=== PATIENT | male | born 1965 | race Caucasian/White ===

== ENCOUNTER 2018-12-13 09:28 | Emergency (ER) | payer SELFPAY ==
[2018-12-13] MEDS ORDERED: NA CHLORIDE 0.9% 500 ML ONE (09:51)
[2018-12-13 10:05] LABS: Absolute Lymphocytes (CBC) 0.8 K/uL (0.7-4.9); Basophils % 0.3 % (0-1.3); Lymphocytes % 10.5 % (15.3-44.8); MPV 8.7 fL (7.6-11.3); RBC Red Blood Cell Count 4.84 M/uL (4.33-5.43)
[2018-12-13 10:43] LABS: BUN Blood Urea Nitrogen 14 mg/dL (7-18); Bicarbonate 29 mmol/L (21-32); Glucose Level 123 mg/dL (74-106); Sodium Level 142 mmol/L (136-145); Troponin (Emerg Dept Use Only) < 0.02 ng/mL (0.0-0.045)
--- NOTE | 2018-12-13 10:43 | RAD REPORT ---
EXAM DESCRIPTION: CT - Head Brain Wo Cont - 12/13/2018 10:35 am CLINICAL HISTORY: SYNCOPE Headache, drowsiness COMPARISON: No comparisons TECHNIQUE: All CT scans are performed using dose optimization technique as appropriate and may inclu de automated exposure control or mA/KV adjustment according to patient size. FINDINGS: No intracranial hemorrhage, hydrocephalus or extra-axial fluid collection.No areas of brai n edema or evidence of midline shift. The paranasal sinuses and mastoids are clear. The calvarium is intact. IMPRESSION: No acute intracranial abnormality.
[2018-12-13 10:47] LABS: Urine Blood NEGATIVE (NEG); Urine Glucose NEGATIVE (NEG); Urine Protein NEGATIVE (NEG); Urine Specific Gravity 1.015 (1.005-1.030); Urine pH 8.5 (5.0-7.0)
--- NOTE | 2018-12-13 12:43 | ER ---
Nurse's Notes [facility] Name: José Walker Age: 53 yrs Sex: Male : 1965 Arrival Date: 12/13/2018 Time: 09:29 Bed 15 Private MD: Diagnosis: Chest pain, unspecified Presentation: 12/13 09:31 Presenting complaint: Patient states: Sudden onset of left side chest pain, jl7 non-radiating, then instantly felt like "I was floating and the next thing I was in the break room." EMS reports positive LOC, did not hit his head, co-workers moved him to the break room. Reported WOOTEN and nausea initially on scene, all symptoms have resolved at this time. Transition of care: patient was not received from another setting of care. Onset of symptoms was December 13, 2018 at 08:30. Risk Assessment: Do you want to hurt yourself or someone else? Patient reports no desire to harm self or others. Initial Sepsis Screen: Does the patient meet any 2 criteria? No. Patient's initial sepsis screen is negative. Does the patient have a suspected source of infection? No. Patient's initial sepsis screen is negative. Care prior to arrival: IV initiated. 20 GA, in the left antecubital area. 09:31 Method Of Arrival: EMS: [facility] jl7 09:31 Acuity: REJI 3 jl7 Triage Assessment: 09:34 General: Appears in no apparent distress. uncomfortable, Behavior is calm, cooperative, jl7 appropriate for age, Reports "I've been under a lot of stress so maybe that's what the problem is.". Pain: Denies pain. EENT: No signs and/or symptoms were reported regarding the EENT system. Neuro: Level of Consciousness is awake, alert, obeys commands, Oriented to person, place, time, situation, Wet Wash Assembler are equal bilaterally Moves all extremities. Full function Gait is steady, Speech is normal, Facial symmetry appears normal. Cardiovascular: Heart tones S1 S2 present Patient's skin is warm and dry. Respiratory: Airway is patent Respiratory effort is even, unlabored, Respiratory pattern is regular, symmetrical, Breath sounds are clear bilaterally. GI: No signs and/or symptoms were reported involving the gastrointestinal system. : No signs and/or symptoms were reported regarding the genitourinary system. Derm: Skin is pink, warm \\T\\ dry. Musculoskeletal: No signs and/or symptoms reported regarding the musculoskeletal system. Historical: - Allergies: 09:34 No Known Allergies; jl7 - Home Meds: 09:34 None [Active]; jl7 - PMHx: 09:34 None; jl7 - PSHx: 09:34 None; jl7 - Immunization history:: Adult Immunizations up to date, Last tetanus immunization: up to date. - Social history:: Smoking status: Patient/guardian denies using tobacco. - Ebola Screening: : No symptoms or risks identified at this time. - Family history:: not pertinent. - Hospitalizations: : No recent hospitalization is reported. Screenin:40 Abuse screen: Denies threats or abuse. Denies injuries from another. Nutritional jl7 screening: No deficits noted. Tuberculosis screening: No symptoms or risk factors identified. Fall Risk IV access (20 points). Total Perez Fall Scale indicates No Risk (0-24 pts). Assessment: 09:30 General: See triage assessment. 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 09:40 Reassessment: Dr. Christensen at bedside. 7 11:00 Reassessment: Patient appears in no apparent distress at this time. No changes from [facility] previously documented assessment. Patient and/or family updated on plan of care and expected duration. Pain level reassessed. Patient is alert, oriented x 3, equal unlabored respirations, skin warm/dry/pink. 12:00 Reassessment: Patient appears in no apparent distress at this time. No changes from [facility] previously documented assessment. Patient and/or family updated on plan of care and expected duration. Pain level reassessed. Patient is alert, oriented x 3, equal unlabored respirations, skin warm/dry/pink. 12:00 Pain: Denies pain. Pain does not radiate. Pain began none. jl7 Vital Signs: 09:37 BP 129 / 81; Pulse 69; Resp 16 S; Temp 98.7(O); Pulse Ox 98% on R/A; Pain 0/10; jl7 12:05 BP 117 / 73; Pulse 84; Resp 15; Temp 98.3(O); Pulse Ox 100% on R/A; mh5 13:00 BP 120 / 79; Pulse 72; Resp 16 S; Pulse Ox 100% on R/A; jl7 ED Course: 09:29 Patient arrived in ED. am2 09:31 Misty Darnell RN is Primary Nurse. jl7 09:34 Triage completed. jl7 09:35 Jose Angel Christensen MD is Attending Physician. rn 09:37 Arm band placed on right wrist. jl7 09:40 Patient has correct armband on for positive identification. insurance job titles on. Pulse jl7 ox on. NIBP on. 09:40 Maintain EMS IV. Dressing intact. Good blood return noted. Site clean \\T\\ dry. Gauge \\T\\ jl 7 site: 20 left AC. Patient maintains SpO2 saturation greater than 95% on room air. 10:00 Initial lab(s) drawn, by ED staff, sent to lab. jl7 10:24 EKG done, by hitch technician. reviewed by Jose Angel Christensen MD. at1 10:35 CT Head Brain wo Cont In Process Unspecified. EDMS 11:00 IV discontinued, intact, bleeding controlled, Pressure dressing applied, Pt's IV jl7 infiltrated. 12:00 Repeat lab(s) drawn. by ED staff, sent to lab. jl7 13:00 No provider procedures requiring assistance completed. jl7 Administered Medications: 12:33 Not Given (Patient Refused): NS 0.9% 500 ml IV at bolus once jl7 Outcome: 12:42 Discharge ordered by . rn 13:00 Discharged to home ambulatory. jl7 13:00 Condition: stable 13:00 Discharge instructions given to patient, Instructed on discharge instructions, follow up and referral plans. Demonstrated understanding of instructions, follow-up care. 13:35 Patient left the ED. jl7 Signatures: Dispatcher [employer] EDMS Jose Angel Christensen MD MD rn Gonzales, Amanda, mattress maker EKG Tat1 Emilia Ring 5 Misty Darnell, RN RN jl7 Tete Garcia am2 Corrections: (The following items were deleted from the chart) 09:45 09:40 Maintain EMS IV. Dressing intact. Good blood return noted. Site clean \\T\\ dry. jl7 Gauge \\T\\ site: 20 right AC. jl7
--- NOTE | 2018-12-13 12:43 | EDPHYS ---
Physician Documentation [facility] Name: José Walker Age: 53 yrs Sex: Male : 1965 Arrival Date: 12/13/2018 Time: 09:29 Bed 15 Private MD: ED Physician Jose Angel Christensen HPI: 12/13 10:01 This 53 yrs old Male presents to ER via EMS with complaints of Chest Pain. rn 10:01 The patient or guardian reports chest pain that is located primarily in the anterior rn chest wall, left. 10:02 The patient has experienced syncope. Onset: The symptoms/episode began/occurred just rn prior to arrival. Duration: This was a single episode. Associated injury: The patient did not suffer any apparent associated injury. Current symptoms: Currently, the patient is not experiencing any symptoms. The patient has not experienced similar symptoms in the past. 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 Reports just seen by cardiology yesterday, has negative treadmill stress test, and ECHO, had been sent there for abnormal ECG by pcp. Cardiology told him everything looked ok. . Historical: - Allergies: 09:34 No Known Allergies; jl7 - Home Meds: 09:34 None [Active]; jl7 - PMHx: 09:34 None; jl7 - PSHx: 09:34 None; jl7 - Immunization history:: Adult Immunizations up to date, Last tetanus immunization: up to date. - Social history:: Smoking status: Patient/guardian denies using tobacco. - Ebola Screening: : No symptoms or risks identified at this time. - Family history:: not pertinent. - Hospitalizations: : No recent hospitalization is reported. ROS: 10:02 Constitutional: Negative for fever, chills, and weight loss, Eyes: Negative for injury, rn pain, redness, and discharge, Neck: Negative for injury, pain, and swelling, Cardiovascular: Negative for palpitations, and edema, Respiratory: Negative for shortness of breath, cough, wheezing, and pleuritic chest pain, Abdomen/GI: Negative for abdominal pain, nausea, vomiting, diarrhea, and constipation, MS/Extremity: Negative for injury and deformity, Skin: Negative for injury, rash, and discoloration, Neuro: Negative for headache, weakness, numbness, tingling, and seizure. Exam: 10:02 Constitutional: This is a well developed, well nourished patient who is awake, alert, rn using cellular phone Head/Face: Normocephalic, atraumatic. Eyes: Pupils equal round and reactive to light, extra-ocular motions intact. Lids and lashes normal. Conjunctiva and sclera are non-icteric and not injected. Cornea within normal limits. Periorbital areas with no swelling, redness, or edema. ENT: MMM Neck: Trachea midline, no thyromegaly or masses palpated, and no cervical lymphadenopathy. Supple, full range of motion without nuchal rigidity, or vertebral point tenderness. No Meningismus. Cardiovascular: Regular rate and rhythm with a normal S1 and S2. No gallops, murmurs, or rubs. No pulse deficits. Respiratory: Lungs have equal breath sounds bilaterally, clear to auscultation. No increased work of breathing, no retractions or nasal flaring. Abdomen/GI: soft, non-tender MS/ Extremity: Pulses equal, no cyanosis. Neurovascular intact. Full, normal range of motion. Equal circumference. Neuro: Awake and alert, GCS 15, oriented to person, place, time, and situation. Cranial nerves II-XII grossly intact. Motor strength 5/5 in all extremities. Sensory grossly intact. Cerebellar exam normal. Vital Signs: 09:37 BP 129 / 81; Pulse 69; Resp 16 S; Temp 98.7(O); Pulse Ox 98% on R/A; Pain 0/10; jl7 12:05 BP 117 / 73; Pulse 84; Resp 15; Temp 98.3(O); Pulse Ox 100% on R/A; mh5 13:00 BP 120 / 79; Pulse 72; Resp 16 S; Pulse Ox 100% on R/A; jl7 MDM: 09:35 Patient medically screened. rn 12:40 Differential Diagnosis: cardiac arrhythmia, idiopathic syncope, vasovagal episode. Data rn reviewed: vital signs, nurses notes, lab test result(s), EKG, radiologic studies, CT scan, and as a result, I will discharge patient. Counseling: I had a detailed discussion with the patient and/or guardian regarding: the historical points, exam findings, and any diagnostic results supporting the discharge/admit diagnosis, lab results, radiology results, the need for outpatient follow up, to return to the emergency department if symptoms worsen or persist or if there are any questions or concerns that arise at home. Response to treatment: the patient's symptoms have markedly improved after treatment, the patient's condition has returned to base line, the patient is now symptom free, patient is well hydrated. and as a result, I will discharge patient. Special discussion: I discussed with the patient/guardian in detail that at this point there is no indication for admission to the hospital. It is understood, however, that if the symptoms persist or worsen the patient needs to return immediately for re-evaluation. Based on the history and exam findings, there is no indication for further emergent testing or inpatient evaluation. I discussed with the patient/guardian the need to see the primary care provider for further evaluation of the symptoms. ED course: Patient with big cardiology w/u neg yesterday, trop neg x 2, ecg without ischemia, will dc home with pcp f/u. Told him if continues to happen, needs to f/u with cardiology for EP study. No arrythmia here. . 12/13 09:43 Order name: Basic Metabolic Panel; Complete Time: 10:52 rn 12/13 09:43 Order name: CBC with Diff; Complete Time: 10:52 12/13 09:43 Order name: Troponin (emerg Dept Use Only); Complete Time: 10: rn 12/13 10:00 Order name: D-Dimer; Complete Time: 10:52 jl7 12/13 10:37 Order name: Urine Dipstick--Ancillary (enter results) bd 12/13 11:02 Order name: Troponin (emerg Dept Use Only); Complete Time: 12:40 rn 12/13 09:43 Order name: CT Head Brain wo Cont; Complete Time: 11:02 12/13 09:43 Order name: EKG; Complete Time: 09:44 12/13 09:43 Order name: Cardiac monitoring; Complete Time: :46 12/13 09:43 Order name: EKG - Nurse/Tech; Complete Time: :46 12/13 09:43 Order name: IV Saline Lock; Complete Time: :46 12/13 09:43 Order name: Labs collected and sent; Complete Time: :46 rn 09/13 09:43 Order name: NPO; Complete Time: 09:46 rn 12/13 09:43 Order name: O2 Per Protocol; Complete Time: :46 rn 12/13 09:43 Order name: O2 Sat Monitoring; Complete Time: :46 rn 12/13 09:43 Order name: Urine Dipstick-Ancillary (obtain specimen); Complete Time: 09:46 rn Administered Medications: 12:33 Not Given (Patient Refused): NS 0.9% 500 ml IV at bolus once jl7 Disposition: 12/13/18 12:42 Discharged to Home. Impression: Chest pain, unspecified. - Condition is Stable. - Discharge Instructions: Nonspecific Chest Pain, Syncope. - Medication Reconciliation Form, Thank You Letter, Antibiotic Education, Prescription Opioid Use form. - Follow up: Private Physician; When: As needed; Reason: Recheck today's complaints, Re-evaluation by your physician. - Problem is new. - Symptoms have improved. Signatures: Dispatcher [employer] EDMS Jose Angel Christensen MD MD rn Leal, Jahala, RN RN jl7 Corrections: (The following items were deleted from the chart) 13:35 12:42 12/13/2018 12:42 Discharged to Home. Impression: Chest pain, unspecified. jl7 Condition is Stable. Forms are Medication Reconciliation Form, Thank You Letter, Antibiotic Education, Prescription Opioid Use. Follow up: Private Physician; When: As needed; Reason: Recheck today's complaints, Re-evaluation by your physician. Problem is new. Symptoms have improved. rn
[2018-12-13 14:07] VITALS: TEMP 98.3; O2SAT 100
[2018-12-13 14:08] VITALS: BP 120/79
--- NOTE | 2018-12-13 20:21 | EKG ---
Test Date: 2018-12-13 Test Time: 09:55:05 Water And Fire Technician: GRACIA MEASUREMENT RESULTS: Intervals: Rate: 72 LA: 132 QRSD: 100 QT: 398 QTc: 435 [place]: P: 64 LA: 132 QRS: -58 T: -7 INTERPRETIVE STATEMENTS: Normal sinus rhythm with sinus arrhythmia Left axis deviation Incomplete right bundle branch block Abnormal ECG No previous ECG available for comparison Electronically Signed On 12-13-18 20:18:44 CDT by Mario Howell
== END 2018-12-13 13:35 | disposition home or self-care (01) ==
LOC: ER 09:28
DX: R07.9 Chest pain, unspecified (principal)
CPT/HCPCS: 36415; 70450; 80048; 81003; 84484; 85025; 85379; 93005; 99285